=== PATIENT | male | born 1970 | race Caucasian/White ===

== ENCOUNTER 2020-05-14 08:40 | Day surgery (SDC) | payer BC ==
[2020-05-11 16:48] VITALS: BMI 44.7
[2020-05-14] MEDS ORDERED: KETAMINE HCL 500 MG/10 ML VIAL ONE (11:30)
[2020-05-14 12:20] VITALS: TEMP 98.8
[2020-05-14 13:43] VITALS: BP 133/74; PULSE 82
== END 2020-05-14 13:30 | disposition home or self-care (01) ==
LOC: FECT 08:40
PROVIDERS: ATTEND Psychiatry & Neurology Psychiatry
PROC: GZB4ZZZ Other Electroconvulsive Therapy (ICD-10-PCS; principal; 2020-05-14 07:30)
DX: F32.9 Major depressive disorder, single episode, unspecified (principal)
CPT/HCPCS: 90870; 94760; C9803; U0003

== ENCOUNTER 2020-05-17 09:02 | Day surgery (SDC) | payer BC ==
[2020-05-16 14:41] VITALS: BMI 44.7
[2020-05-17] MEDS ORDERED: PROPOFOL 20 ML ONE ×2 (10:01→10:02)
[2020-05-17] MEDS ORDERED: SUCCINYLCHOLINE CHLORIDE 200 MG/10 ML SYRINGE ONE ×2 (10:03)
[2020-05-17] MEDS ORDERED: KETAMINE HCL 200 MG/20 ML VIAL ONE (10:58)
[2020-05-17] MEDS ORDERED: KETOROLAC TROMETHAMINE 30 MG/1 ML VIAL ONE (10:58)
[2020-05-17 12:11] VITALS: TEMP 98.3
[2020-05-17 14:01] VITALS: BP 122/82; PULSE 66
== END 2020-05-17 13:00 | disposition home or self-care (01) ==
LOC: FECT 09:02
PROVIDERS: ATTEND Psychiatry & Neurology Psychiatry
PROC: GZB4ZZZ Other Electroconvulsive Therapy (ICD-10-PCS; principal; 2020-05-17 10:00)
DX: F32.9 Major depressive disorder, single episode, unspecified (principal)
CPT/HCPCS: 90870; 94760; C9803; U0003

== ENCOUNTER 2020-05-21 09:23 | Day surgery (SDC) | payer BC ==
[2020-05-18 13:29] VITALS: BMI 44.7
[2020-05-21] MEDS ORDERED: KETAMINE HCL 500 MG/10 ML VIAL ONE (10:54)
[2020-05-21] MEDS ORDERED: PROPOFOL 20 ML ONE (10:59)
[2020-05-21] MEDS ORDERED: SUCCINYLCHOLINE CHLORIDE 200 MG/10 ML SYRINGE ONE (10:59)
[2020-05-21 12:01] VITALS: TEMP 98.4
[2020-05-21 12:21] VITALS: BP 108/55; PULSE 76
== END 2020-05-21 13:05 | disposition home or self-care (01) ==
LOC: FECT 09:23
PROVIDERS: ATTEND Psychiatry & Neurology Psychiatry
PROC: GZB4ZZZ Other Electroconvulsive Therapy (ICD-10-PCS; principal; 2020-05-21 09:30)
DX: F32.9 Major depressive disorder, single episode, unspecified (principal)
CPT/HCPCS: 90870; 94760; C9803; U0003

== ENCOUNTER 2020-05-28 09:07 | Day surgery (SDC) | payer BC ==
[2020-05-28 09:43] VITALS: BMI 44.7
[2020-05-28] MEDS ORDERED: KETAMINE HCL 500 MG/10 ML VIAL ONE (10:31)
[2020-05-28 13:17] VITALS: TEMP 97.9
[2020-05-28 13:19] VITALS: BP 132/91; PULSE 78
== END 2020-05-28 12:40 | disposition home or self-care (01) ==
LOC: FECT 09:07
PROVIDERS: ATTEND Psychiatry & Neurology Psychiatry
PROC: GZB4ZZZ Other Electroconvulsive Therapy (ICD-10-PCS; principal; 2020-05-28 09:00)
DX: F33.9 Major depressive disorder, recurrent, unspecified (principal)
CPT/HCPCS: 90870; 94760

== ENCOUNTER 2020-05-31 08:55 | Day surgery (SDC) | payer BC ==
[2020-05-29 10:04] VITALS: BMI 44.7
== END 2020-05-31 09:30 | disposition home or self-care (01) ==
LOC: FECT 08:55
PROVIDERS: ATTEND Psychiatry & Neurology Psychiatry
PROC: GZB4ZZZ Other Electroconvulsive Therapy (ICD-10-PCS; principal; 2020-05-31)
DX: F32.9 Major depressive disorder, single episode, unspecified (principal); Z53.8 Procedure and treatment not carried out for other reasons
CPT/HCPCS: C9803; U0003

== ENCOUNTER → 2020-06-04 | Day surgery (SDC) | payer BC ==
[2020-05-29 10:12] VITALS: BMI 44.7
[~2020-06-04] MED LIST: ACETAMINOPHEN 325 MG TABLET (FP) PO PRN; KETAMINE HCL 500 MG/10 ML VIAL ONE; KETOROLAC TROMETHAMINE 30 MG/1 ML VIAL ONE; LACTATED RINGERS SOLUTION 1,000 ML IV SCH; PROMETHAZINE HCL 25 MG/1 ML VIAL IVPUSH PRN
[2020-06-04 11:37] VITALS: BP 133/84; PULSE 78; TEMP 98.9
== END | disposition home or self-care (01) ==
LOC: FECT 08:54
PROVIDERS: ATTEND Psychiatry & Neurology Psychiatry
PROC: GZB4ZZZ Other Electroconvulsive Therapy (ICD-10-PCS; principal; 2020-06-04 07:00)
DX: F32.9 Major depressive disorder, single episode, unspecified (principal)
CPT/HCPCS: 90870; 94760; C9803; U0003

== ENCOUNTER 2020-06-07 09:17 | Day surgery (SDC) | payer BC ==
[2020-05-30 13:47] VITALS: BMI 44.7
[2020-06-07] MEDS ORDERED: KETAMINE HCL 500 MG/10 ML VIAL ONE (10:19)
[2020-06-07] MEDS ORDERED: ONDANSETRON 4 MG/2 ML VIAL IVPUSH PRN (11:14)
[2020-06-07] MEDS ORDERED: LACTATED RINGERS SOLUTION 1,000 ML IV SCH (11:15)
[2020-06-07 11:27] VITALS: TEMP 98.1
[2020-06-07 11:49] VITALS: BP 114/77; PULSE 76
== END 2020-06-07 12:50 | disposition home or self-care (01) ==
LOC: FECT 09:17
PROVIDERS: ATTEND Psychiatry & Neurology Psychiatry
PROC: GZB4ZZZ Other Electroconvulsive Therapy (ICD-10-PCS; principal; 2020-06-07 09:30)
DX: F33.2 Major depressive disorder, recurrent severe without psychotic features (principal)
CPT/HCPCS: 90870; 94760; C9803; U0003

== ENCOUNTER 2020-06-11 08:57 | Day surgery (SDC) | payer BC ==
[2020-06-11 10:37] VITALS: TEMP 98.3
[2020-06-11 10:40] VITALS: BMI 44.9
[2020-06-11] MEDS ORDERED: KETAMINE HCL 500 MG/10 ML VIAL ONE (11:30)
[2020-06-11] MEDS ORDERED: SUCCINYLCHOLINE CHLORIDE 200 MG/10 ML SYRINGE ONE (11:43)
[2020-06-11 13:17] VITALS: BP 122/69; PULSE 69
== END 2020-06-11 14:30 | disposition home or self-care (01) ==
LOC: FECT 08:57
PROVIDERS: ATTEND Psychiatry & Neurology Psychiatry
PROC: GZB4ZZZ Other Electroconvulsive Therapy (ICD-10-PCS; principal; 2020-06-11 08:30)
DX: F32.9 Major depressive disorder, single episode, unspecified (principal)
CPT/HCPCS: 90870; 94760; C9803; U0003

== ENCOUNTER 2020-06-14 09:03 | Day surgery (SDC) | payer BC ==
[2020-06-14 10:44] VITALS: BMI 44.6
[2020-06-14] MEDS ORDERED: KETAMINE HCL 500 MG/10 ML VIAL ONE (11:15)
[2020-06-14 12:25] VITALS: PULSE 79
[2020-06-14 12:40] VITALS: BP 129/60; TEMP 98
== END 2020-06-14 13:15 | disposition home or self-care (01) ==
LOC: FECT 09:03
PROVIDERS: ATTEND Psychiatry & Neurology Psychiatry
PROC: GZB4ZZZ Other Electroconvulsive Therapy (ICD-10-PCS; principal; 2020-06-14 09:30)
DX: F32.9 Major depressive disorder, single episode, unspecified (principal)
CPT/HCPCS: 90870; 94760; C9803; U0003

== ENCOUNTER 2020-06-21 09:13 | Day surgery (SDC) | payer BC ==
[2020-06-21 09:42] VITALS: BMI 44.6
[2020-06-21] MEDS ORDERED: KETAMINE HCL 500 MG/10 ML VIAL ONE (10:43)
[2020-06-21 11:58] VITALS: TEMP 97.8
[2020-06-21 12:02] VITALS: BP 123/63; PULSE 79
== END 2020-06-21 13:00 | disposition home or self-care (01) ==
LOC: FECT 09:13
PROVIDERS: ATTEND Psychiatry & Neurology Psychiatry
PROC: GZB4ZZZ Other Electroconvulsive Therapy (ICD-10-PCS; principal; 2020-06-21 10:00)
DX: F32.9 Major depressive disorder, single episode, unspecified (principal)
CPT/HCPCS: 90870; 94760; C9803; U0003

== ENCOUNTER 2020-07-05 09:15 | Day surgery (SDC) | payer BC ==
[2020-06-21 15:02] VITALS: BMI 44.6
[2020-07-05] MEDS ORDERED: KETAMINE HCL 500 MG/10 ML VIAL ONE (11:09)
[2020-07-05] MEDS ORDERED: METOPROLOL TARTRATE 5 MG/5 ML VIAL ONE (11:35)
[2020-07-05 12:24] VITALS: TEMP 97.8
[2020-07-05 12:46] VITALS: BP 135/71; PULSE 74
[2020-07-05] MEDS ORDERED: ACETAMINOPHEN 500 MG TABLET (FP) PO PRN (13:09)
[2020-07-05] MEDS ORDERED: LACTATED RINGERS SOLUTION 1,000 ML IV SCH (13:15)
== END 2020-07-05 13:16 | disposition home or self-care (01) ==
LOC: FECT 09:15
PROVIDERS: ATTEND Psychiatry & Neurology Psychiatry
PROC: GZB4ZZZ Other Electroconvulsive Therapy (ICD-10-PCS; principal; 2020-07-05 10:30)
DX: F32.9 Major depressive disorder, single episode, unspecified (principal)
CPT/HCPCS: 90870; 94760; C9803; U0003